=== PATIENT | male | born 1990 | race Caucasian/White ===

== ENCOUNTER 2019-11-10 14:58 | Day surgery (SDC) ==
[2019-11-10] MEDS ORDERED: NS 2,000 ML IV ONE (15:25)
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
--- NOTE | 2019-11-10 15:52 | Diag Imaging Result Doc PS360 ---
EXAM: CHEST-PORTABLE 11/10/2019 HISTORY: hypothermia TECHNIQUE: AP portable at 1543 COMMENT: There is no evidence of acute cardiac or pulmonary disease. There are no previous studies. IMPRESSION: No acute abnormality. Electronically signed by Smooth Grimm 11/10/2019 3:50 PM
[2019-11-10 16:01] LABS: BASO# 0.03 X1000 (0.0-0.2); BASO% 0.3 % (0.0-0.8); HEMATOCRIT 41.7 % (42.0-52.0); HEMOGLOBIN 14.4 g/dL (14.0-18.0); IMM GRAN# 0.02 X1000 (0.0-0.04); IMM GRAN% 0.2 % (0.0-0.5); LYMPH% 19.3 % (20.5-51.1); MCH 30.1 PG (27-31); MCHC 34.5 g/dL (33-37); MCV 87.1 FL (81-99); MONO# 0.87 X1000 (0.11-0.59); MONO% 8.4 % (1.7-9.3); MPV 9.1 FL (7.4-10.4); NEUT# 7.34 X1000 (1.4-6.5); NEUT% 70.8 % (42.2-75.2); PLT 407 X1000 (130-400); RBC 4.79 XMIL (4.7-6.1); RDW 13.6 % (11.5-14.5); WBC 10.36 X1000 (4.8-10.8)
[2019-11-10 16:43] LABS: AGAP 15; ALB/GLOB RATIO 2.1; ALBUMIN 4.8 g/dL (3.5-5.0); ALKALINE PHOSPHATASE 81 U/L (32-122); BUN 16 mg/dL (8-22); CHLORIDE 97 mmol/L (98-107); COSMO 273; CREATININE 0.8 mg/dL (0.7-1.2); ESTIMATED GFR > 60; GLUCOSE 101 mg/dL (70-104); GOT 144 U/L (10-34); GPT 53 U/L (10-44); POTASSIUM 4.5 mmol/L (3.5-5.1); SODIUM 136 mmol/L (136-145); TCO2 24 mmol/L (25-35); TOTAL PROTEIN 7.1 g/dL (6.3-8.3)
[2019-11-10 16:52] LABS: CK PROFILE 4182 U/L (24-204)
[2019-11-10 17:09] LABS: CK-MB 43.62 ng/mL (0.0-5.0)
[2019-11-10] MEDS ORDERED: TYLENOL PO ONE (18:11)
[2019-11-10] MEDS ORDERED: NS 1,000 ML IV ONE (18:15)
[2019-11-10 18:51] LABS: URINE SOURCE CLEAN CATCH
[2019-11-10 18:56] LABS: BILIRUBIN URINE NEGATIVE (NEGATIVE); BLOOD URINE MODERATE (NEGATIVE); COLOR YELLOW; GLUCOSE URINE NEGATIVE (NEGATIVE); KETONE URINE 20 mg/dL (NEGATIVE); LEUKOCYTES URINE NEGATIVE (NEGATIVE); NITRITE URINE NEGATIVE (NEGATIVE); PROTEIN URINE 30 mg/dL (NEGATIVE); SP GRAVITY URINE 1.032; TURBIDITY URINE CLEAR (CLEAR); UROBILINOGEN URINE 2 mg/dL (NORMAL)
[2019-11-10 18:57] LABS: UR EPITHELIAL CELLS <10 /HPF (<10); URINE BACTERIA NEGATIVE /HPF; URINE RBC <10 /HPF (<10); URINE WBC <10 /HPF (<10)
[2019-11-10 19:10] LABS: UR AMPHETAMINES QUAL PRESUMPTIVE POSITIVE (NONE DETECT); UR BARBITUATES QUAL NONE DETECTED (NONE DETECT); UR BENZODIAZEPIN QUAL NONE DETECTED (NONE DETECT); UR CANNABINOIDS QUAL PRESUMPTIVE POSITIVE (NONE DETECT); UR COCAINE QUAL NONE DETECTED (NONE DETECT); UR METHADONE QUAL NONE DETECTED (NONE DETECT); UR OPIATES QUAL NONE DETECTED (NONE DETECT); UR OXYCODONE QUAL NONE DETECTED (NONE DETECT); UR PCP QUAL NONE DETECTED (NONE DETECT)
[2019-11-10] MEDS ORDERED: ZOFRAN IV PRN (20:08)
[2019-11-10] MEDS ORDERED: TYLENOL PO PRN (20:08)
[2019-11-10] MEDS ORDERED: NS 1,000 ML IV SCH (20:15)
--- NOTE | 2019-11-10 20:35 | Diag Imaging Result Doc PS360 ---
EXAM: CT HEAD W/O CONTRAST 11/10/2019 HISTORY: confusion TECHNIQUE: This exam was performed using automated exposure control, adjustment of mA or kV according to patient size, and/or use of iterative reconstruction technique. COMMENT: There is no evidence of mass effect, bleed, or abnormal extra-axial fluid collection. The calvarium is intact. The visualized paranasal sinuses are clear. There are no previous studies. IMPRESSION: No evidence of acute intracranial disease. Electronically signed by Smooth Grimm 11/10/2019 8:33 PM
[2019-11-10 21:51] VITALS: BP 114/56
--- NOTE | 2019-11-10 22:18 | EKG Report ---
Test Performed on : 11/10/2019 6:07:13 PM Test Reason : hypothermia Blood Pressure : / mmHG Vent. Rate : 088 BPM Atrial Rate : 088 BPM P-R Int : 152 ms QRS Dur : 076 ms QT Int : 396 ms P-R-T Axes : 068 088 062 degrees QTc Int : 479 ms Normal sinus rhythm. Normal ECG No previous ECGs available Unconfirmed Result
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
== END 2019-11-10 22:20 | disposition home or self-care (01) | DRG 923 ==
LOC: ED 14:58 → OPS 20:35 → INTOOBSV 20:35 → 3N 20:35 → OPS 22:20
PROVIDERS: ATTEND Emergency Medicine